=== PATIENT | female | born 1940 | race African-American/Black ===

== ENCOUNTER 2017-10-20 11:55 | Emergency (ER) | payer MEDICARE, OTHER ==
[~2017-10-20] VITALS: Ht 160 cm; Wt 72.7 kg
[~2017-10-20 11:55] MED LIST: ATEN50TA PO; BIMA12.5OS OU; HYDR25TA PO; LANS30CA53 PO; TIMO10DR28 OP
[2017-10-20 11:57] VITALS: BP 143/62
[2017-10-20] MEDS ORDERED: HYDR25TA84 PO (12:00)
[2017-10-20] MEDS ORDERED: NIFE60TA81 PO (12:00)
[2017-10-20] MEDS ORDERED: ATEN50TA PO (12:00)
[2017-10-20] MEDS ORDERED: SPIR1TAB PO (12:00)
[2017-10-20] MEDS ORDERED: LISI-662 PO (12:00)
== END 2017-10-20 14:08 | disposition home or self-care (01) ==
LOC: EMS 11:55
DX: J06.9 Acute upper respiratory infection, unspecified (principal); K21.9 Gastro-esophageal reflux disease without esophagitis; I10 Essential (primary) hypertension
CPT/HCPCS: 71046; 99284

== ENCOUNTER 2020-09-02 12:55 | Emergency (ER) | payer MEDICARE, OTHER ==
[~2020-09-02] VITALS: Ht 167.6 cm; Wt 68.2 kg
[~2020-09-02 12:55] MED LIST changes: +ATEN-72 PO; -ATEN50TA PO; -BIMA12.5OS OU; -HYDR25TA PO; +HYDR25TA84 PO; -LANS30CA53 PO; +LISI-894 PO; +NIFE60TA81 PO; +SPIR1TAB PO; -TIMO10DR28 OP
[2020-09-02] MEDS ORDERED: LIDOCAINE 2% 5 ML JELLY TP ONE (14:00)
[2020-09-02] MEDS ORDERED: PERTUSS(ACELL),DIPH,TET VAC/PF 0.5 ML SYRINGE IM. ONE (14:00)
[2020-09-02 15:27] VITALS: BP 137/58
== END 2020-09-02 15:52 | disposition home or self-care (01) ==
LOC: EMS 12:55
DX: S01.81XA Laceration without foreign body of other part of head, initial encounter (principal); K21.9 Gastro-esophageal reflux disease without esophagitis; I10 Essential (primary) hypertension; Z79.899 Other long term (current) drug therapy; W01.0XXA Fall on same level from slipping, tripping and stumbling without subsequent striking against object, initial encounter; Y93.01 Activity, walking, marching and hiking; Y92.89 Other specified places as the place of occurrence of the external cause; Y99.8 Other external cause status
CPT/HCPCS: 12013; 70450; 72125; 90471; 90715; 99285

== ENCOUNTER 2020-09-07 09:27 | Emergency (ER) | payer MEDICARE ==
[~2020-09-07] VITALS: Ht 160 cm; Wt 61.4 kg
[2020-09-07 11:15] VITALS: BP 125/42
== END 2020-09-07 11:20 | disposition home or self-care (01) ==
LOC: EMS 09:32
DX: S01.81XD Laceration without foreign body of other part of head, subsequent encounter (principal); Z48.02 Encounter for removal of sutures; W01.0XXD Fall on same level from slipping, tripping and stumbling without subsequent striking against object, subsequent encounter
CPT/HCPCS: 99281; Z7502